=== PATIENT | male | born 2000 | race Caucasian/White ===

== ENCOUNTER 2022-02-26 18:16 | Emergency (ER) | payer BC, SELFPAY ==
[2022-02-26 18:21] VITALS: BP 118/72; PULSE 98; RESP 18; TEMP 36; O2SAT 98; BMI 32.1
--- NOTE | 2022-02-26 18:41 | ED.GENADULT ---
HPI - General Adult General Chief complaint: Extremity Pain/Injury, Lower Stated complaint: PAIN IN HIP & CAN'T WALK Time Seen by Provider: 02/26/22 18:28 History of Present Illness HPI narrative: This 21-year-old male comes in reporting pain in his left leg that has become severe such that he is unable to ambulate. He does not report any recent injury event. He did have a hip surgery on the left side a couple months ago to repair a labrum injury. He has been undergoing physical therapy since then and has been recovering nicely. He states that this current pain is there constantly but worse when trying to ambulate. He states that the pain shoots from his left buttock down his whole left leg. Related Data Home Medications Medication Instructions Recorded Confirmed escitalopram oxalate 5 mg tablet 5 mg PO DAILY 02/26/22 02/26/22 (Lexapro) Allergies Allergy/AdvReac Type Severity Reaction Status Date / Time cefprozil Allergy Unknown Verified 02/26/22 18:25 Review of Systems Status of ROS: Reports: 10 or more systems reviewed and unremarkable except as noted in History and below Narrative: Constitutional: No fevers, no weight gain or loss. Eyes: No discharge. No vision changes. HENT: No congestion, no sore throat, no ear pain. Cardiovascular: No chest pain, no palpitations. Respiratory: No shortness of breath, no wheezes, no cough. Gastrointestinal: No abdominal pain, no vomiting, no diarrhea. Genitourinary: No dysuria, no hematuria. Musculoskeletal: Left buttock and leg pain as described above. Skin: No rashes, no pruritis. Neurological: No dizziness, weakness, sensory change, speech change. Endo/Heme/Allergies: No bruising or bleeding. No polydipsia. Pysch: no suicidality, no anxiety, no insomnia. All other systems reviewed and are negative. PFSH PFSH Social History Smoking Status: Never smoker Do you use any of these nicotine containing products: None Second hand tobacco smoke exposure: No How often do you have a drink containing alcohol: monthly or less AUDIT-C Alcohol total score: 1 Non-prescribed substance use: denies use service: No Exam Narrative: Exam Narrative: Constitutional: Well-developed, well-nourished, no acute distress. HEENT: Normocephalic, atraumatic. Neck: Normal range of motion. Nontender. Supple. Heart: Intact distal pulses. Lungs: No chest discomfort. No wheezes, rhonchi, or rales. Abdomen: Nontender. Back: Normal range of motion. Extremities: No sign of injury. He is able to raise is left leg a bit from the bed. No particular pain increased when log-rolling his left leg or when loading his hip joint. Skin: Intact. No rash. Warm. No erythema or pallor. Neurologic: No altered sensation. No weakness. Alert and oriented. Straight leg raise is negative bilaterally. Psychiatric: No suicidality. No anxiety or depression. No insomnia. Nursing notes and vitals signs are reviewed. Const: Vital Signs, click to edit/add: Vital Signs - 24 hr 02/26/22 18:21 Temperature 96.8 F L Pulse Rate [Pulse Oximeter] 98 Respiratory Rate 18 Blood Pressure [Le ft Upper Arm] 118/72 Pulse Oximetry 98 Oxygen Delivery Me thod Room Air Course Vital Signs Vital signs: Initial Vital Signs Temperature 96.8 F L 02/26/22 18:21 Temperature Source Temporal Artery Scan 02/26/22 18:21 Pulse Rate 98 02/26/22 18:21 Respiratory Rate 18 02/26/22 18:21 Blood Pressure 118/72 02/26/22 18:21 Blood Pressure Mean 87 02/26/22 18:21 Blood Pressure Position Sitting 02/26/22 18:21 Pulse Oximetry 98 02/26/22 18:21 Oxygen Delivery Method 02/26/22 18:21 Vital Signs Temperature 96.8 F L 02/26/22 18:21 Pulse Rate 98 02/26/22 18:21 Respiratory Rate 18 02/26/22 18:21 Blood Pressure 118/72 02/26/22 18:21 Pulse Oximetry 98 02/26/22 18:21 Oxygen Delivery Method 02/26/22 18:21 Temperature 96.8 F L 02/26/22 18:21 Pulse Rate 98 02/26/22 18:21 Respiratory Rate 18 02/26/22 18:21 Blood Pressure 118/72 02/26/22 18:21 Pulse Oximetry 98 02/26/22 18:21 Oxygen Delivery Method 02/26/22 18:21 Medical Decision Making MDM Narrative Medical decision making narrative: This patient comes in stating that he gets the brief at jolts of pain radiating down his left leg. He has some chronic pain related to hip surgery that happened a couple months ago. He has been undergoing physical therapy and recovering from that and describes no particular injury event. He states that he is unable to walk because of these symptoms. He is able to lift his leg from the bed and has a rather normal exam. His straight leg raise is negative bilaterally. He does describe pain radiating down from his low back in to most of his left leg and this intensifies with certain maneuvers and when attempting to ambulate. He received an intramuscular injection of morphine 10 mg. He was able to get up and ambulate but did have some episode of brief intense pain. He continued to state that he cannot walk and I stated that he was walking but is having some pain that appears to be related to nerve impingement. There was no particular injury event that an x-ray or CT imaging would diagnosis. He may need an MRI. It seems best that he follows up with his orthopedic surgeon and clinic personnel. He states that he does have a physical therapy appointment scheduled for tomorrow. He also has crutches at home that he can use for increased stability. He is in fact able to ambulate but is having some episodes of intense pain at certain times. He received prescriptions for Flexeril and Toradol. Discharge Plan Discharge Clinical Impression: Sciatica Patient Disposition: Home, Self-Care Condition: Stable Additional Instructions: Take medication as needed and prescribed. Increase activity as tolerated. Use crutches for stability if needed. Follow-up with physical therapy and orthopedic clinic as soon as possible. Return if worsening. Prescriptions: No Action escitalopram oxalate [Lexapro] 5 mg tablet 5 mg PO DAILY Follow Up/Referrals: Manoj Wise MD [Primary Care Provider] - Stand Alone Forms: [employer] Info Instructions
[2022-02-26] MEDS: MORPHINE 10 MG/ML inj IM (18:52)
[2022-02-26 20:42] VITALS: BP 118/72; PULSE 98; RESP 18
== END 2022-02-26 20:43 | disposition home or self-care (01) ==
PROVIDERS: Emergency Provider Emergency Medicine Emergency Medical Services; PCP Family Medicine
DX: M54.32 Sciatica, left side (principal)
CPT/HCPCS: 96372; 99284; J2270